=== PATIENT | male | born 1990 | race Caucasian/White ===

== ENCOUNTER 2016-07-22 19:06 | Emergency (ER) | payer MEDICAID ==
[~2016-07-22 19:06] MED LIST: BACITRACIN30 GM TOP; KEFLEX PO; NO MEDICATIONS; PREDNISONE10 MG PO; ZITHROMAX PO
== END 2016-07-22 20:30 | disposition home or self-care (01) ==
LOC: CED 19:06
DX: T40.1X1A Poisoning by heroin, accidental (unintentional), initial encounter (principal); Y92.9 Unspecified place or not applicable
CPT/HCPCS: 99282; 99283